=== PATIENT | female | born 1985 | race African-American/Black ===

== ENCOUNTER 2023-01-31 05:15 | Inpatient (IN) | payer OTHER ==
[2023-01-31] MEDS ORDERED: CITRIC ACID/SODIUM CITRATE 30 ML UNIT-DOSE CUP PO ONE ×2 (05:45→06:00)
[2023-01-31 05:53] VITALS: BMI 36.7
[2023-01-31] MEDS ORDERED: ELECTROLYTE-148 SOLN 1,000 ML IV SCH (06:00)
[2023-01-31] MEDS ORDERED: ELECTROLYTE-148 SOLN 500 ML IV ONE (06:00)
[2023-01-31 06:18] LABS: BASO % 0.5 % (0-2.0); EOS % 1.5 % (0-4.5); HEMOGLOBIN 12.1 GM/dL (10.7-15.3); LYMPH % 23.4 % (8-40); MCH 21.1 pg (25.7-33.7); MCHC 33.6 g/dl (32.0-36.0); MEAN PLT VOLUME 10.8 fl (7.5-11.1); MONO % 7.3 % (3.8-10.2); NEUT % 67.3 % (42.8-82.8); PLATELET COUNT 102 10^3/uL (134-434); RBC 5.71 M/mm3 (3.60-5.2); RDW 17.5 % (11.6-15.6)
[2023-01-31] MEDS ORDERED: METHYLERGONOVINE MALEATE 0.2 MG/1 ML AMP IM PRN (10:26)
[2023-01-31] MEDS ORDERED: IBUPROFEN 800 MG/8 ML IJ IVPB PRN (10:26)
[2023-01-31] MEDS ORDERED: ACETAMINOPHEN 325 MG TABLET (FP) PO PRN (10:26)
[2023-01-31] MEDS ORDERED: ACETAMINOPHEN 1000 MG/100 ML BAG IVPB PRN (10:29)
[2023-01-31 11:08] LABS: BASO % 0.5 % (0-2.0); EOS % 0.5 % (0-4.5); HEMATOCRIT 36.9 % (32.4-45.2); HEMOGLOBIN 12.2 GM/dL (10.7-15.3); LYMPH % 10.5 % (8-40); MCH 20.6 pg (25.7-33.7); MCHC 33.1 g/dl (32.0-36.0); MEAN CELL VOLUME 62.2 fl (80-96); MEAN PLT VOLUME 9.1 fl (7.5-11.1); MONO % 5.7 % (3.8-10.2); NEUT % 82.8 % (42.8-82.8); PLATELET COUNT 122 10^3/uL (134-434); RBC 5.93 M/mm3 (3.60-5.2); RDW 17.4 % (11.6-15.6); WHITE BLOOD COUNT 12.7 K/mm3 (4.0-10.0)
[2023-01-31 11:23] LABS: CORD HCO3 17.7 mmHg (20-29); CORD PCO2 76.6 mmHg (30-78)
[2023-01-31 11:27] LABS: CORD pH 6.981 (7.14-7.44)
[2023-01-31] MEDS ORDERED: ONDANSETRON 4 MG/2 ML VIAL IVPUSH ONE (11:45)
[2023-01-31] MEDS: OXYTOCIN 20 UNITS in 0.9% NS 20 UNIT/1,000 ML INFUS.BAG IV SCH ×2 (12:28→21:34)
[2023-01-31] MEDS ORDERED: OXYTOCIN 20 UNITS in 0.9% NS 20 UNIT/1,000 ML INFUS.BAG IV ONE (12:34)
[2023-01-31] MEDS ORDERED: ONDANSETRON 4 MG/2 ML VIAL IVPUSH PRN (18:15)
[2023-01-31] MEDS: FERROUS SO4 325 MG TABLET (FP) PO SCH (21:36)
[2023-01-31] MEDS ORDERED: oxyCODONE HCL 5 MG TABLET PO PRN ×2 (22:26)
[2023-02-01 08:29] LABS: BASO % 0.3 % (0-2.0); EOS % 0.4 % (0-4.5); HEMATOCRIT 33.8 % (32.4-45.2); HEMOGLOBIN 11.3 GM/dL (10.7-15.3); LYMPH % 10.9 % (8-40); MCH 20.7 pg (25.7-33.7); MCHC 33.4 g/dl (32.0-36.0); MEAN CELL VOLUME 62.2 fl (80-96); MEAN PLT VOLUME 9.8 fl (7.5-11.1); MONO % 7.1 % (3.8-10.2); NEUT % 81.3 % (42.8-82.8); PLATELET COUNT 118 10^3/uL (134-434); RBC 5.44 M/mm3 (3.60-5.2); RDW 17.1 % (11.6-15.6); WHITE BLOOD COUNT 10.6 K/mm3 (4.0-10.0)
[2023-02-01] MEDS: FERROUS SO4 325 MG TABLET (FP) PO SCH ×2 (09:14→21:29)
[2023-02-01] MEDS: PRENATAL VITAMINS W/ FOLIC ACID TABLET (FP) PO SCH (09:14)
[2023-02-01] MEDS ORDERED: BISACODYL 10 MG SUPP.RECT RC PRN (10:26)
[2023-02-01] MEDS: IBUPROFEN 600 MG TABLET (FP) PO PRN ×2 (14:22→21:28)
[2023-02-01] MEDS: SIMETHICONE 80 MG TAB.CHEW (FP) PO PRN (21:29)
[2023-02-01] MEDS: SENNOSIDES/DOCUSATE COMBO (SENNA PLUS) TABLET (UD) PO PRN (21:29)
[2023-02-01 22:08] VITALS: RESP 18
[2023-02-02] MEDS: IBUPROFEN 600 MG TABLET (FP) PO PRN ×2 (08:55→21:57)
[2023-02-02] MEDS: SIMETHICONE 80 MG TAB.CHEW (FP) PO PRN ×2 (08:56→21:57)
[2023-02-02] MEDS: FERROUS SO4 325 MG TABLET (FP) PO SCH ×2 (09:00→21:56)
[2023-02-02] MEDS: PRENATAL VITAMINS W/ FOLIC ACID TABLET (FP) PO SCH (09:00)
[2023-02-02] MEDS: ELECTROLYTE-148 SOLN 500 ML IV SCH ×3 (19:44→19:45)
[2023-02-02] MEDS: OXYTOCIN 20 UNITS in 0.9% NS 20 UNIT/1,000 ML INFUS.BAG IV SCH (19:45)
[2023-02-02] MEDS: SENNOSIDES/DOCUSATE COMBO (SENNA PLUS) TABLET (UD) PO PRN (21:55)
[2023-02-03] MEDS: PRENATAL VITAMINS W/ FOLIC ACID TABLET (FP) PO SCH (09:50)
[2023-02-03] MEDS: FERROUS SO4 325 MG TABLET (FP) PO SCH (09:50)
[2023-02-03] MEDS: IBUPROFEN 600 MG TABLET (FP) PO PRN (09:50)
[2023-02-03 10:27] VITALS: BP 126/89; PULSE 80; TEMP 98.1
== END 2023-02-03 11:10 | disposition home or self-care (01) | DRG 788 ==
LOC: JLDR 05:15 → J3W 12:50
PROVIDERS: ADMIT Obstetrics & Gynecology; ATTEND Obstetrics & Gynecology
PROC: 10D00Z1 Extraction of Products of Conception, Low, Open Approach (ICD-10-PCS; principal; 2023-01-31)
DX: O34.219 Maternal care for unspecified type scar from previous cesarean delivery (principal); Z3A.39 39 weeks gestation of pregnancy; Z37.0 Single live birth
CPT/HCPCS: 36415; 36430; 36600; 82803; 85025; 86850; 86900; 86901; P9034